=== PATIENT | female | born 2000 | race Two or more races ===

== ENCOUNTER → 2022-04-11 | Outpatient (REF) | payer OTHER | LOC: M PLALAB 13:46 | PROVIDERS: ATTEND Nurse Practitioner Family | DX: Z12.4 Encounter for screening for malignant neoplasm of cervix (principal) ==

== ENCOUNTER 2022-11-29 12:29 | Emergency (ER) | payer OTHER ==
[~2022-11-29] VITALS: Ht 167.6 cm; Wt 116.0 kg
[2022-11-29] MEDS ORDERED: NS 1,000 ML IV ONE (16:00)
[2022-11-29] MEDS ORDERED: KETOROLAC 30 MG/ML 1ML VIAL IV ONE (16:00)
[2022-11-29] MEDS ORDERED: METOCLOPRAMIDE INJ 10MG/2ML VIAL IV ONE (16:00)
[2022-11-29 16:41] LABS: BASO % 0.4 % (0.0-1.0); EOS # 0.7 10^3/uL (0.0-0.5); EOS % 7.2 % (0.0-3.0); HEMATOCRIT 39.5 % (36.0-47.0); HEMOGLOBIN 12.9 g/dl (12.0-15.5); LYMPH # 3.4 10^3/uL (1.5-5.0); LYMPH % 36.4 % (24.0-44.0); MEAN CORPUSCULAR HEMOGLOBIN 31.1 pg (27.0-33.0); MEAN CORPUSCULAR HGB CONC 32.7 g/dl (32.0-36.5); MEAN CORPUSCULAR VOLUME 95.2 fl (80.0-96.0); MONO # 0.6 10^3/uL (0.0-0.8); MONO % 6.1 % (2.0-8.0); NEUTROPHILS # 4.6 10^3/uL (1.5-8.5); NEUTROPHILS % 49.7 % (36.0-66.0); PLATELET COUNT, AUTOMATED 323 10^3/uL (150-450); RED BLOOD COUNT 4.15 10^6/uL (4.00-5.40); WHITE BLOOD COUNT 9.2 10^3/uL (4.0-10.0)
[2022-11-29 17:09] LABS: ERYTHROCYTE SEDIMENTATION RATE 8 mm/hr (0-20)
[2022-11-29 17:21] VITALS: BP 116/59
[2022-11-29] MEDS ORDERED: REGL10TA6 PO (17:43)
[2022-11-29] MEDS ORDERED: FIOR1CAP PO (17:43)
== END 2022-11-29 17:54 | disposition home or self-care (01) ==
LOC: M ED 12:29
DX: S06.0X0A Concussion without loss of consciousness, initial encounter (principal); W20.8XXA Other cause of strike by thrown, projected or falling object, initial encounter; Y92.89 Other specified places as the place of occurrence of the external cause; Y93.89 Activity, other specified; Y99.8 Other external cause status; R42 Dizziness and giddiness; E28.2 Polycystic ovarian syndrome; Z91.018 Allergy to other foods
CPT/HCPCS: 70450; 80047; 84702; 85025; 85652; 86140; 96374; 96375; 99284; J1100; J1885; J2765

== ENCOUNTER → 2023-09-19 | Outpatient (CLI) | payer OTHER ==
[~2023-09-19] MED LIST: FIOR1CAP PO; REGL10TA6 PO
[2023-09-19 10:33] LABS: FOLLICLE STIMULATING HORMONE 5.4 mIU/ML; PROGESTERONE 0.75 NG/ML
[2023-09-19 10:34] LABS: LUTEINIZING HORMONE 10.1 mIU/ML; PROLACTIN 7.94 NG/ML
[2023-09-19 10:35] LABS: FREE T4 1.18 NG/DL (0.89-1.76); THYROID STIMULATING HORMONE 2.6 uIU/ML (0.55-4.78)
== END ==
LOC: M PLALAB 08:14
PROVIDERS: ATTEND Specialist
DX: N92.6 Irregular menstruation, unspecified (principal)

== ENCOUNTER → 2023-09-19 | Outpatient (CLI) | payer OTHER | LOC: M WHC 06:58 | PROVIDERS: ATTEND Specialist | DX: N92.6 Irregular menstruation, unspecified (principal); R93.41 Abnormal radiologic findings on diagnostic imaging of renal pelvis, ureter, or bladder ==